=== PATIENT | female | born 1970 | race Caucasian/White ===

== ENCOUNTER 2018-06-27 18:47 | Emergency (ER) | payer MEDICAID ==
[~2018-06-27] VITALS: Ht 162.6 cm; Wt 75.3 kg
[2018-06-27 18:56] VITALS: Ht 162.6 cm; Wt 75.3 kg
[2018-06-27 23:55] VITALS: BP 96/43
== END 2018-06-27 23:56 | disposition home or self-care (01) ==
LOC: ED 18:47
DX: M25.562 Pain in left knee (principal); M25.561 Pain in right knee; I10 Essential (primary) hypertension; W01.0XXA Fall on same level from slipping, tripping and stumbling without subsequent striking against object, initial encounter; Y93.89 Activity, other specified; Y92.89 Other specified places as the place of occurrence of the external cause; Y99.8 Other external cause status